=== PATIENT | male | born 1970 | race Caucasian/White ===

== ENCOUNTER 2024-10-18 10:49 | Outpatient (CLI) | payer OTHER, SELFPAY ==
--- NOTE | ~2024-10-18 | CT_ITS ---
CT scan of the Neck Technique: 2.5 mm axial scans were obtained through the neck after intravenous administration of 75 c c Omnipaque 350. Coronal and sagittal reconstructions of the neck were obtained. Dose reduction techn ique was used on this scan by utilizing automated exposure control and iterative reconstruction techn ique. The dose-length product (DLP) was 596.77 mGy-cm. Clinical History: Left parotid gland mass Findings: There is a heterogeneously enhancing mass in the left parotid gland superficial portion, measuring 2. 6 x 2.4 x 4.3 cm in size (coronal image 56). Right parotid gland unremarkable. Submandibular glands a re unremarkable. No lymphadenopathy evident. Parapharyngeal fat preserved bilaterally. The pharyngeal mucosal spaces appear normal. No soft tissue masses are seen in the neck. The thyroid gland appears normal. Images of the lung apices reveal no abnormalities. Impression: 2.6 x 2.4 x 4.3 cm heterogeneous enhancing mass in the superficial portion of the left parotid gland. Benign and malignant neoplasms are in the differential diagnosis. MR imaging can be pursued for furt her imaging evaluation, though oftentimes parotid gland lesions cannot be precisely diagnosed based o n imaging alone. Biopsy will likely be necessary to establish a histologic diagnosis, and should be a chievable by ultrasound-guided biopsy. Reviewed, dictated and finalized at location M. Impression: 2.6 x 2.4 x 4.3 cm heterogeneous enhancing mass in the superficial portion of t he left parotid gland. Benign and malignant neoplasms are in the differential d iagnosis. MR imaging can be pursued for further imaging evaluation, though ofte ntimes parotid gland lesions cannot be precisely diagnosed based on imaging lester ne. Biopsy will likely be necessary to establish a histologic diagnosis, and sh ould be achievable by ultrasound-guided biopsy.
[2024-10-18 11:42] LABS: Estimated Glomerular Filt Rate 53
== END 2024-10-18 10:50 | disposition home or self-care (01) ==
PROVIDERS: PCP Family Medicine; Visit Provider Otolaryngology
DX: K11.8 Other diseases of salivary glands (principal)
CPT/HCPCS: 70491; Q9967

== ENCOUNTER 2024-11-04 12:31 | Outpatient (CLI) | payer OTHER, SELFPAY ==
--- NOTE | ~2024-11-04 | US_ITS ---
EXAMINATION: US FNA w image guidance DATE: 11/04/2024 13:56 INDICATION: Left parotid mass TECHNIQUE: A time-out was performed to verify the patient's name, date of , and procedure to be performed . The procedure and its benefits and risks were discussed with the patient. Risks specifically discus sed included bleeding and infection. The patient understood the risks and agreed to proceed. The neck was prepped and draped in the usual sterile manner. 3 mL 1% lidocaine was used for local anesthesia . 6 passes were made with a 25G needle into the lesion. Appropriate needle location was documented with continuous sonographic guidance. A sterile bandage was applied. There were no immediate compli cations. FINDINGS: Grayscale ultrasound images demonstrate biopsy needles advanced into a 4.1 x 2.5 x 2.4 cm heterogeneo usly hypoechoic mass in the left parotid. IMPRESSION: 1. Successful ultrasound-guided fine needle aspiration of a 4.1 cm left parotid mass. Reviewed, dictated and finalized at location A. IMPRESSION: 1. Successful ultrasound-guided fine needle aspiration of a 4.1 cm left paroti d mass.
--- OUTSIDE RECORDS SUMMARY | 2024-11-04 12:37 | XMS_ITS | Patient Health Record ---
Author Organization [facility] Address [address] [address] Care Team Providers Care Transfer Agent Name Role Phone RODERICK TODD Primary Care Provider Petty luis Joesphxiao Haile Unavailable [phone] Allergies No Known Allergies Results Component Value Reference Range Notes Hemoglobin A1C Reviewed date:02/05/2024 10:20:40 AM Interpretation:6.5 Performing Lab: Notes/Report: 6.5 Hemoglobin A1c 6.5 Hemoglobin A1C Reviewed date:02/05/2024 10:20:40 AM Interpretation:6.5 Performing Lab: Notes/Report: 6.5 Hemoglobin A1c 6.5 MICROALBUMIN, RANDOM URINE ( W/CREATININE) Reviewed date:05/06/2024 02:27:21 PM Interpretation:Normal Performing Lab: Notes/Report: Normal Microalbumin, Urine 39.1 Microalb/Creat Ratio 23.7 Creatinine, Urine 165 Lipid Panel, Fasting Reviewed date:05/06/2024 02:27:28 PM Interpretation:Normal Performing Lab: Notes/Report: Normal DIRECT LDL 64 CHOLESTEROL, TOTAL 115 HDL CHOLESTEROL 48 TRIGLYCERIDES 105 LDL-CHOLESTEROL 46 Hemoglobin A1C Reviewed date:05/06/2024 02:28:26 PM Interpretation:7.9 Performing Lab: Notes/Report: 7.9 Hemoglobin A1c 7.9 Hemoglobin A1C Reviewed date:05/06/2024 02:28:26 PM Interpretation:7.9 Performing Lab: Notes/Report: 7.9 Hemoglobin A1c 7.9 CMP (Comp Metabolic Panel) Reviewed date:05/06/2024 02:28:39 PM Interpretation:eGFR 54 Performing Lab: Notes/Report: eGFR 54 CREATININE 1.45 eGFR NON-AFR. EQUATORIAL GUINEAN 54 SODIUM 133 POTASSIUM 3.9 ALT 30 AST 34 CALCIUM 9.1 GLUCOSE 174 ALKALINE PHOSPHATASE 71 ALBUMIN 4.0 CBC (H/H, RBC, INDICES, WBC, PLT) Reviewed date:05/06/2024 02:28:49 PM Interpretation:Normal Performing Lab: Notes/Report: Normal Hematocrit 54.6 Hemoglobin 18.1 MCH 28.7 MCHC 33.2 MCV 86.5 MPV 9.3 Platelets 393 RBC 6.31 RDW 15.9 WBC 21.5 Reason For Referral No Information Medications Medication SIG (Take, Route, Frequency, Duration) Notes Start Date End Date Status Testosterone Cypionate 200 MG/ML INJECT 1 ML INTRAMUSCULARLY ONCE WEEKLY; Duration: 90 07/03/2024 Active Tamsulosin HCl 0.4 MG Oral; Duration: 90 Days Acti ve Tresiba FlexTouch 200 UNIT/ML 60 units Subcutaneous once a day; Duration: 90 days Active Losartan Potassium-HCTZ 50-12.5 MG 1 tablet Orally Once a day Active Fiasp FlexTouch 100 UNIT/ML 25 units Subcutaneous three times a day; Duration: 90 days E1065 03/06/2024 Active Metoprolol Succinate ER 25 MG 1 tablet Orally Once a day; Duration: [address] Hahn does not manage this medication. Patient needs to contact PCP. 05/30/2024 Active Dexcom G7 Sensor - apply one sensor juana ry 10 days; Duration: 30 days E1065 03/06/2024 Active Viagra 100 MG 1 tablet as needed Orally Once a day; Duration: 30 day(s) Active Atorvastatin Calcium 80 MG 1 tablet Orally Once a day Active FreeStyle Gregory 3 Sensor - as directed by device twice month 12/29/2023 Active Gvoke HypoPen 2-Pack 1 MG/0.2ML inject 1mg Subcutaneous as needed with hypoglycemia 12/18/2023 Active Social History Tobacco Use: Social History Observation Description Date Details (start date - stop date) Current Smoker NA - NA TU Question Answer Notes Are you a smoker current smoker How often do you smoke cigarettes? every day How many cigarettes a day do you smoke? 11- Tobacco Control (Standard) Question Answer Notes Tobacco use: Current smoker Problems Problem Type SNOMED Code ICD Code Onset Dates Problem Status W/U Status Risk Notes Problem Mixed hyperlipidemia (808720621) Mixed hyperlipidemia (E78.2) Active confirmed Problem Essential hypertension (65682546) Essential (primary) hypertension (I10) Active confirmed Problem Obesity due to excess calories (257430911) Other obesity due to excess calories (E66.09) Active confirmed Problem Dietary management surveillance (279801992) Dietary counseling and surveillance (Z71.3) Active confirmed Problem Long-term current use of insulin (112106397) jail (current) use of insulin (Z79.4) Active confirmed Problem Hyperglycemia due to type 1 diabetes mellitus (406557080459678) Diabetes mellitus type 1, uncontrolled (E10.65) Active confirmed Problem Polyneuropathy due to diabetes mellitus type I (790601465) Diabetic polyneuropathy associated with type 1 diabetes mellitus (E10.42) Active confirmed Problem Chronic kidney disease stage 3A (disorder) (579710847) Chronic kidney disease, stage 3a (N18.31) Active confirmed Vital Signs Respiratory Rate 20 /min 02/02/2024 Blood pressure diastolic 84 mm Hg 02/02/2024 Height 72 in 02/02/2024 Blood pressure systolic 142 mm Hg 02/02/2024 Weight 245 lbs 02/02/2024 BMI 33.22 kg/m2 02/02/2024 Encounters Encounter Location Date Provider Diagnosis [address] [address] 12/29/2023 Haile Hahn Diabetes mellitus ty pe 1, uncontrolled E10.65 ; Diabetic polyneuropathy associated with type 1 diabetes mellitus E10.42 ; Essential (primary) hypertension I10 ; Chronic kidney disease, stage 3a N18.31 ; Mixed hyperlipidemia E78.2 ; Other obesity due to excess calories E66.09 ; Dietary counseling and surveillance Z71.3 and jail (current) use of insulin Z79.[address] [address] 02/02/2024 Haile Hahn Diabetes mellitus ty pe 1, uncontrolled E10.65 ; Diabetic polyneuropathy associated with type 1 diabetes mellitus E10.42 ; Essential (primary) hypertension I10 ; Chronic kidney disease, stage 3a N18.31 ; Mixed hyperlipidemia E78.2 ; Other obesity due to excess calories E66.09 ; Dietary counseling and surveillance Z71.3 and jail (current) use of insulin Z79.[address] [address] 11/10/2023 Haile Hahn Diabetic polyneuropa thy associated with type 1 diabetes mellitus E10.42 [facility] [address] [place] [address] 11/13/2023 Haile Raju Diabetes mellitus ty pe 1, uncontrolled E10.65 [facility] [address] [place] [address] 11/14/2023 [facility] [address] [place] [address] 12/13/2023 Haile Raju Diabetes mellitus ty pe 1, uncontrolled E10.65 [facility] [address] [place] [address] 12/15/2023 [facility] Diabetes mellitus ty pe 1, uncontrolled E10.65 [place] [address] [place] [address] 12/21/2023 [facility] [address] [place] [address] 02/13/2024 [place] [address] [place] [address] 03/06/2024 [facility] Raju Diabetes mellitus ty pe 1, uncontrolled E10.[address] [address] 05/30/2024 [facility] [address] [facility] [address] [place] [address] 06/13/2024 [place] [address] [place] [address] 08/12/2024 [facility] [address] [place] [address] 09/19/2024 [facility] Raj Diabetes mellitus ty pe 1, uncontrolled E10.65 Assessments Encounter Date Diagnosis (ICD Code) Assessment Notes Treatment Notes Treatment Clinical Notes Section Notes 11/10/2023 Diabetic polyneuropathy associated with type 1 diabetes mellitus (ICD-10 - E10.42) 11/13/2023 Diabetes mellitus type 1, uncontrolled (ICD-10 - E10.65) 12/13/2023 Diabetes mellitus type 1, uncontrolled (ICD-10 - E10.65) 12/15/2023 Diabetes mellitus type 1, uncontrolled (ICD-10 - E10.65) 12/29/2023 Diabetes mellitus type 1, uncontrolled (ICD-10 - E10.65) Takes insulin 4 times a day and test blood sugars 4 times a day. Assessment: A1c in 7-8s, LDL 41 Patient seen Says his BS high and low for no reason sometimes and was about to enroll him in a study Had bad experience with sensors in the past. Says it was not accurate and failure rate was high Plan: Advised to get Dexcom G6 and see if he can wear it and if accuracy is good. He is open to get a insulin pump. Need to know if he tolerates Dexcom G6 or G7 or gregory before deciding on the pump. Will evaluate in AprDec 2023:Not enough data in LibreFiasp [address] a day (1 unit for every 10 gm of carbs)Tresiba 30 units 02/02/2024 Diabetes mellitus type 1, uncontrolled (ICD-10 - E10.65) Takes insulin 4 times a day and test blood sugars 4 times a day. Assessment: A1c in 7-8s, LDL 41 Patient seen Says his BS high and low for no reason sometimes and was about to enroll him in a study Had bad experience with sensors in the past. Says it was not accurate and failure rate was high Plan: Advised to get Dexcom G6 and see if he can wear it and if accuracy is good. He is open to get a insulin pump. Need to know if he tolerates Dexcom G6 or G7 or gregory before deciding on the pump. Will evaluate in AprJan 2024Fiasp [address] a day (1 unit for every 10 gm of carbs)Tresiba 30 units Gregory reviewed, PP hyperglycemia 03/06/2024 Diabetes mellitus type 1, uncontrolled (ICD-10 - E10.65) 09/19/2024 Diabetes mellitus type 1, uncontrolled (ICD-10 - E10.65) 02/02/2024 Diabetic polyneuropathy associated with type 1 diabetes mellitus (ICD-10 - E10.42) 12/29/2023 Diabetic polyneuropathy associated with type 1 diabetes mellitus (ICD-10 - E10.42) 12/29/2023 Essential (primary) hypertension (ICD-10 - I10) controlled. 2 g sodium diet. Blood pressure goal less than 130/80. 02/02/2024 Essential (primary) hypertension (ICD-10 - I10) controlled. 2 g sodium diet. Blood pressure goal less than 130/80. 02/02/2024 Chronic kidney disease, stage 3a (ICD-10 - N18.31) eGFR 44 12/29/2023 Chronic kidney disease, stage 3a (ICD-10 - N18.31) eGFR 44 12/29/2023 Mixed hyperlipidemia (ICD-10 - E78.2) COntrolled. LDL goal < 100. 02/02/2024 Mixed hyperlipidemia (ICD-10 - E78.2) COntrolled. LDL goal < 100. 12/29/2023 Other obesity due to excess calories (ICD-10 - E66.09) Patient was advised to take to take 500-1000 fewer calories every day to lose 1 pound per week. [Advised to lose five to 10% of her current weight to achieve health benefits]., 02/02/2024 Other obesity due to excess calories (ICD-10 - E66.09) Patient was advised to take to take 500-1000 fewer calories every day to lose 1 pound per week. 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
--- OUTSIDE RECORDS SUMMARY | 2024-11-04 12:37 | XMS_ITS | Clinical Summary ---
Author Organization [facility] 2 Address [address] [facility] [place] [address] Care Team Providers Care Quality Assurance Monitor Name Role Phone Kavitajagdeep Deniz Lam CHRISTOPHER Primary Care Provider Allergies No known active allergies Medications pen needle, diabetic (BD ULTRA-FINE KORINA PEN NEEDLE) 32 gauge x 5/32 needle use 4 times daily 12/18/19 15 Active lancets (freestyle) 28 gauge misc Check 4 times daily 12/18/19 15 Active lancets (ONETOUCH DELICA LANCETS) 30 gauge misc use 4 times daily 12/18/19 15 Active blood-glucose sensor (DEXCOM G6 SENSOR) deviceIndication s:Type 1 diabetes mellitus with complication (HCC) Change every 7-10 days as directed 12 Device 3 03/21/20 18 Active Additional Information Patient not taking.Reported on 06/12/2019 glucagon (glucagon) 1 mg kit As directed 1 kit 11 11/01/19 19 Active glucagon 3 mg/actuation spray,non-aeroso lIndications:Typ e 1 diabetes mellitus with complication (HCC) Administer 3 mg into affected nostril(s) daily as needed (as directed for severe lows) 1 each 11 06/12/19 20 Active Tresiba FlexTouch U-100 100 unit/mL (3 mL) insulin penIndications:T ype 1 diabetes mellitus with complication (HCC) INEJCT 24 SUBCUTANEOUSLY ONCE DAILY 30 Syringe 04/27/19 21 Active FIASP 100 unit/mL (3 mL) pen for injection INJECT 1 UNIT/10 GM OF CARBS AND 1 UNIT/25 OVER 150 - MAX 60 UNITS/DAY 60 Syringe 3 10/08/19 Active famotidine (PEPCID) 40 mg tablet TAKE 1 TABLET BY MOUTH EVERY DAY 90 tablet 03/22/20 Active Dexcom G6 Transmitter deviceIndication s:Type 1 diabetes mellitus with complication (HCC) CHANGED EVERY 3 MONTHS DIRECTED 1 each 03/22/20 Active FreeStyle Lite Strips stripIndications :Type 1 diabetes mellitus with complication (HCC) USE TO TEST THREE TIMES DAILY 100 strip 1 03/22/20 Active Active Problems Problem Noted Date Diagnosed Date Gastroesophageal reflux disease with esophagitis 06/12/2019 Type 1 diabetes mellitus 12/17/2014 Multiple-type hyperlipidemia 12/17/2014 Hypogonadism in male 12/17/2014 Family History Medical History Relation Name Comments Cancer Cousin Cancer - (Added by Scirra) Hypertension Father Hypertension - (Added by Liztic Conv) Cancer Maternal Grandfather Cancer - Relation: Grandfather (Added by Liztic Conv) Thyroid disease Mother Thyroid Diso rder - (Added by Liztic Conv) Cancer Other 1 Cancer - Relati on: Grandmother (Added by Liztic Conv) Cancer Other 2 Cancer - Relati on: Aunt (Added by Liztic Conv) Cancer Other 3 Cancer - Relati on: Uncle (Added by Liztic Conv) Relation Name Status Comments Cousin Father Maternal Grandfather Mother Other 1 Other 2 Other 3 Social History Tobacco Use Types Packs/Day Years Used Date Smoking Tobacco: Some Days Personal Safety Answer Date Recorded Getting School Help Needed Not on file 07/07 Sex and Gender Information Value Date Recorded Sex Assigned at Not on file Legal Sex Male 8: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 Gender Identity Not on file Sexual Orientation Not on file Obstetrics History Last Filed Vital Signs Vital Sign Reading Time Taken Comments Blood Pressure 147/87 06/12/2019 11:04 AM AIRCRAFT SEAT UPHOLSTERER Pulse 67 06/12/2019 11:04 AM AIRCRAFT SEAT UPHOLSTERER Temperature 37 C (98.6 F) 06/12/2019 11:04 AM AIRCRAFT SEAT UPHOLSTERER Respiratory Rate - - Oxygen Saturation - - Inhaled Oxygen Concentration - - Weight 104.3 kg (230 lb) 06/12/2019 11:04 AM AIRCRAFT SEAT UPHOLSTERER Height 180.3 cm (5' 11) 06/12/2019 11:04 AM AIRCRAFT SEAT UPHOLSTERER Body Mass Index 32.08 06/12/2019 11:04 AM AIRCRAFT SEAT UPHOLSTERER Plan of Treatment Not on file Insurance Care Teams Quality Assurance Monitor Relationship Specialty Start Date End Date Deniz Anguiano DO PCP - General 03/27/17
--- OUTSIDE RECORDS SUMMARY | 2024-11-04 12:37 | XMS_ITS | Referral Summary ---
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 Gender Identity Not on file Sexual Orientation Not on file Last Filed Vital Signs Vital Sign Reading Time Taken Comments Blood Pressure 147/87 06/12/2019 11:04 AM INCIDENT RESPONSE COORDINATOR Pulse 67 06/12/2019 11:04 AM INCIDENT RESPONSE COORDINATOR Temperature 37 C (98.6 F) 06/12/2019 11:04 AM INCIDENT RESPONSE COORDINATOR Respiratory Rate - - Oxygen Saturation - - Inhaled Oxygen Concentration - - Weight 104.3 kg (230 lb) 06/12/2019 11:04 AM INCIDENT RESPONSE COORDINATOR Height 180.3 cm (5' 11) 06/12/2019 11:04 AM INCIDENT RESPONSE COORDINATOR Body Mass Index 32.08 06/12/2019 11:04 AM INCIDENT RESPONSE COORDINATOR Plan of Treatment Not on file Insurance [facility] [employer] [facility] Care Teams Cable Dispatcher Relationship Specialty Start Date End Date Deniz Anguiano DO PCP - General 03/27/17
--- OUTSIDE RECORDS SUMMARY | 2024-11-04 12:38 | XMS_ITS | Patient Health Record ---
Author Organization Main ([facility]) - Primar y Care [place] Address [address] [facility] [address] [place] [address] Support Name Relationship Address Phone Unavailable Emergency Contact Unknown Unavailabl e TOAN BARRERA Guarantor Unknown [phone] Reason For Referral No Information Medications Medication SIG (Take, Route, Frequency, Duration) Notes Start Date End Date Status BD ULTRA FINE II 0.3 ML SYRN 31GX5/16 MISCELLANEOUS 1.00(MISCELL) MISCELL. DIRECTE *please review for potential update for e-prescription and drug interaction check* use as directed 11/01/2005 Active LANTUS 100 UNITS/ML VIAL 100 U/ML UNITS 25.00(UNITS) SUB-Q QD *please review for potential update for e-prescription and drug interaction check* 11/01/2005 Active Plan Of Treatment No Information Insurance Providers Payer Name Payer Address Payer Phone Subscriber Number Group Number Insured Name Patient Relationship to Insured Coverage Start Date Coverage End Date Migrated Missing Insurance [id number] TAON BARRERA Self - patient is the insured 7
--- OUTSIDE RECORDS SUMMARY | 2024-11-04 12:38 | XMS_ITS ---
Author Organization [facility] Address [address] [address] Care Team Providers Care Ocean Lifeguard Name Role Phone TODD VAUGHN Primary Care Provider Haile Alston Unavailable [phone] REASON FOR VISIT Christen Velásquez, Diabetes Medications Medication SIG (Take, Route, Frequency, Duration) Notes Start Date End Date Status Gvoke HypoPen 2-Pack 1 MG/0.2ML inject 1mg Subcutaneous as needed with hypoglycemia 12/18/2023 Active Tresiba FlexTouch 200 UNIT/ML 60 units Subcutaneous once a day Active Losartan Potassium-HCTZ 50-12.5 MG 1 tablet Orally Once a day A ctive Dexcom G7 Sensor - apply one sensor juana ry 10 days; Duration: 30 days E10.65 03/06/2024 Active Fiasp FlexTouch 100 UNIT/ML 25 units Subcutaneous three times a day; Duration: 90 days E1065 03/06/2024 Active Viagra 100 MG 1 tablet as needed O rally Once a day; Duration: 30 day(s) Active Testosterone Cypionate 200 MG/ML 1 mL Intramuscular weekly; Duration: 90 days 10/30/2023 Active Atorvastatin Calcium 80 MG 1 tablet Orally Once a day A ctive FreeStyle Gregory 3 Sensor - as directed by device twice month 12/29/2023 Active Tamsulosin HCl 0.4 MG Oral; Duration: 90 Days Active Encounters Encounter Location Date Provider Diagnosis [facility] [address] [place] [address] 04/05/2024 Haile Hahn Diabetes mellitus ty pe 1, uncontrolled E10.65 ; Diabetic polyneuropathy associated with type 1 diabetes mellitus E10.42 ; Essential (primary) hypertension I10 ; Chronic kidney disease, stage 3a N18.31 ; Mixed hyperlipidemia E78.2 ; Other obesity due to excess calories E66.09 ; Dietary counseling and surveillance Z71.3 and 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 2 g sodium diet. Blood pressure goal less than 130/80. 04/05/2024 Chronic kidney disease, stage 3a (ICD-10 - N18.31) eGFR 44 04/05/2024 Mixed hyperlipidemia (ICD-10 - E78.2) COntrolled. LDL goal < 100. 04/05/2024 Other obesity due to excess calories (ICD-10 - E66.09) Patient was advised to take to take 500-1000 fewer calories every day to lose 1 pound per week. [Advised to lose five to 10% of her current weight to achieve health benefits]., 04/05/2024 Dietary counseling and surveillance (ICD-10 - Z71.3) 04/05/2024 shelter (current) use of insulin (ICD-10 - Z79.4) Plan Of Treatment Treatment Notes Assessment Notes Diabetes mellitus type 1, uncontrolled T akes insulin 4 times a day and test blood sugars 4 times a day. Progress Notes * Barbie BARRERA:1970 (53 yo M)Acc No.[id number]:04/05/2024 Patient: Paulie MOTA Provider: Alexander Hahn MD :1970 A ge:53 Y S ex:Male Date:04/05/2024 Address:[address] [place] [address] Pcp:TODD VAUGHN Subjective: * Chief Complaints: * 1 . Freestyle. 2. Freestyle. 3. Diabetes. Objective: * Vitals: Assessment: * Assessment: 1. D iabetes mellitus type 1, uncontrolled - E10.65 (Primary) 2 . D iabetic polyneuropathy associated with type 1 diabetes mellitus - E10.42 3 . E ssential (primary) hypertension - I10 4 . C hronic kidney disease, stage 3a - N18.31 5. M ixed hyperlipidemia - E78.2 6 . O ther obesity due to excess calories - E66.09 7 . D ietary counseling and surveillance - Z71.3 ? 8 . L connie term (current) use of insulin - Z79.4 Plan: * Treatment: 2. E ssential (primary) hypertension Clinical Notes: controlled. 2 g sodium diet. Blood pressure goal less than 130/80. 3. C hronic kidney disease, stage 3a Clinical Notes: eGFR 44 4. M ixed hyperlipidemia Clinical Notes:COntrolled. LDL goal < 100. 5. O ther obesity due to excess calories Clinical Notes: Patient was advised to take to take 500-1000 fewer calories every day to lose 1 pound per week. [Advised to lose five to 10% of her current weight to achieve health benefits]., ? * Billing Information: * Visit Code: * Procedure Codes: * Electronic signature of Radha Hahn MD on 11/04/2024 at 12:37 PM CDT Sign off status: Pending * Provider: Alexander Hahn MD Date: 06/06/2023 Generated for Junior ng/Faevangelinag/eTransmitting on: 0 11/04/2024 12:37 PM CDT History and Physical Notes * HPI (History of Present Illness) Category Sub-Category Detail Notes Category Not es Diabetes Diabetes Duration: 20-30 yrs Diagnosed age 25 Current Treatment: Insulin Jan 2024: Fiasp [address] a day (1 unit for every 10 gm of carbs) Tresiba 30 units Sensor: Freestyle SMB-4 times Eating Schedule: 3 meal Diabetic Complication: Nephropathy Hospital admission for Hyper glycemia and DKA: No Exercise: No Hypoglycemia: Yes When ptit it happen?: Night Time Can you feel the low BS?: Yes Hypoglycemia unawareness?: No Work Schedule: Retired Diabetes ID Bracelet: No Do you check BS before Driving: No Autonomic Neuropathy abdominal fullness nausea vomiting urinary problems sexual difficulty night sweats cold feet leg swelling dizziness Registry FLU Vaccine Status: Declined Pneumonia Vaccine Status: Declined Smoking Status: Current Date Assessed: 03/31/2023 Cessation Counselling Provided: 03/31/20 Depression Screening PHQ-2 Little interest or pleasur e in doing things?: No Feeling Down, Depressed or Hopeless?: No Social Assessments Health Literacy Low Health Literacy: No Cognitive Assessment Cognitive Dysfunction: No Functional Assessment Visual Impairment: No Hearing Impairment: No Mobility/Dexerity Issues: No Swallowing Problems: No Frequent Falls: No Functional Status: 1 Losing Balance: No Dependence for ADL: No Risk for Fall: No Social Support Assessment Isolation: No Transportation difficulties: No Lack of motivation: No Caregiver Stress: No Financial Difficulties: No Major Events self/family Members interfe ring with self-Care: No Difficulty with care corodination and fa cilitation: No Nonadherence: No Inadequate Medical Visits: No Inadequate Monitoring: No Not integrating recommendations from Pro viders: No Health Beliefs interfering with therapy: No Living Condition Lives with: Spouse Lives in: Home Functional Barriers at the living place: No Caregiver: Self Examination Category Sub-Category Detail Notes Category Not es General Examination HEENT: Normocephalic, atraum atic Neck, Thyroid : Supple, no thyromega ly, no lymphadenopathy, no JVD, no carotid bruit Heart: RRR, normal S1S2, no murmur, rub, or gallop Lungs: Clear to auscultatio n bilaterally, no wheezes, rhonchi, or rales Abdomen: Soft, NT/ND, BS pres ent, no guarding or rebound, no masses palpated, no hepatosplenomegaly Extremities: No clubbing, cyanosi s, or edema, pulses 2+ bilaterally General Appearance: Well developed and w ell- nourished, NAD Skin: No rash or skin lesi ons Neurologic Exam: Non-focal exam, CN's II-XII grossly intact Oral Cavity Normal, moist mucus membranes Diabetic Foot Exam Visual Inspection: Exam Perfo rmed : Yes Date:: 12/29/2023 Nails: Normal Skin: Normal Pulses: Normal Vibration: Reduced Monofilament: Normal Footwear Evaluation Performed: Yes Images: 12/29/2023 Opthamology Referral Specialty of provid er who performed eye exam: 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
--- OUTSIDE RECORDS SUMMARY | 2024-11-04 12:38 | XMS_ITS ---
Author Organization [facility] Address [address] [address] Care Team Providers Care Manual Winder Name Role Phone TODD VAUGHN Primary Care Provider Haile Altson Unavailable [phone] REASON FOR VISIT Freestyle, Diabetes Medications Medication SIG (Take, Route, Frequency, Duration) Notes Start Date End Date Status Losartan Potassium-HCTZ 50-12.5 MG 1 tablet Orally Once a day Active Tresiba FlexTouch 200 UNIT/ML 60 units Subcutaneous once a day Active Fiasp FlexTouch 100 UNIT/ML 25 units Subcutaneous three times a day; Duration: 90 days E10.65 03/06/2024 Active FreeStyle Gregory 3 Sensor - as directed by device twice month 12/29/2023 Active Gvoke HypoPen 2-Pack 1 MG/0.2ML inject 1mg Subcutaneous as needed with hypoglycemia 12/18/2023 Active Tamsulosin HCl 0.4 MG Oral; Duration: 90 Days Active Testosterone Cypionate 200 MG/ML 1 mL Intramuscular weekly; Duration: 90 days 10/30/2023 Active Metoprolol Succinate ER 25 MG 1 tablet Orally Once a day; Duration: [address] Hahn does not manage this medication. Patient needs to contact PCP. 05/30/2024 Active Viagra 100 MG 1 tablet as needed Orally Once a day; Duration: 30 day(s) Active Atorvastatin Calcium 80 MG 1 tablet Orally Once a day Active Dexcom G7 Sensor - apply one sensor juana ry 10 days; Duration: 30 days E10.65 03/06/2024 Active Encounters Encounter Location Date Provider Diagnosis [facility] [address] [place] [address] 06/07/2024 Haile Hahn Diabetes mellitus ty pe 1, uncontrolled E10.65 ; Diabetic polyneuropathy associated with type 1 diabetes mellitus E10.42 ; Essential (primary) hypertension I10 ; Chronic kidney disease, stage 3a N18.31 ; Mixed hyperlipidemia E78.2 ; Other obesity due to excess calories E66.09 ; Dietary counseling and surveillance Z71.3 and alf (current) use of insulin Z79.4 Assessments Encounter Date Diagnosis (ICD Code) Assessment Notes Treatment Notes Treatment Clinical Notes Section Notes 06/07/2024 Diabetes mellitus type 1, uncontrolled (ICD-10 - [...] carbs)Tresiba 30 units Gregory reviewed, PP hyperglycemia 06/07/2024 Diabetic polyneuropathy associated with type 1 diabetes mellitus (ICD-10 - E10.42) 06/07/2024 Essential (primary) hypertension (ICD-10 - I10) controlled. 2 g sodium diet. Blood pressure goal less than 130/80. 06/07/2024 Chronic kidney disease, stage 3a (ICD-10 - N18.31) eGFR 44 06/07/2024 Mixed hyperlipidemia (ICD-10 - E78.2) COntrolled. LDL goal < 100. 06/07/2024 Other obesity due to excess calories (ICD-10 - E66.09) Patient was advised to take to take 500-1000 fewer calories every day to lose 1 pound per week. 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 Progress Notes * Paulie BARRERADOB:1970 (53 yo M)Acc No.[id number]:06/07/2024 Patient: Paulie MOTA Provider: Alexander Hahn MD :1970 A ge:53 Y S ex:Male Date:06/07/2024 Address:[address] [place], [place] [id number] Pcp:TODD VAUGHN Subjective: * Chief Complaints: * 1 . Freestyle. 2. Diabetes. Objective: * Vitals: Assessment: * Assessment: [...] of Radha Hahn MD on 11/04/2024 at 12:38 PM CDT Sign off status: Pending * Provider: Alexander Hahn MD Date: 0 06/07/2024 Generated for Junior metzger/Christina/Jose Gitting on: 0 11/04/2024 12:38 PM CDT History and Physical Notes * [...] DKA: No Exercise: No Hypoglycemia: Yes When pitt it happen?: Night Time Can you feel [...] Date Assessed: 03/31/2023 Cessation Counselling Provided: 03/31/20 23 Depression Screening PHQ-2 Little interest or pleasur [...] Yes Images: 12/29/2023 Opthamology Referral Specialty of [facility] er who 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
--- OUTSIDE RECORDS SUMMARY | 2024-11-04 12:38 | XMS_ITS ---
Author Organization [facility] Address [address] [address] Care Team Providers Care School Cleaner Name Role Phone TODD VAUGHN Primary Care Provider Haile Alston Unavailable [phone] REASON FOR VISIT Freestyle Encounters Encounter Location Date Provider Diagnosis [facility] [address] [place] [address] 06/14/2024 Haile Hahn Plan Of Treatment No Information Progress Notes * BARRERAPaulie JEFFERSDOB:1970 (53 yo M)Acc No.[id number]:06/14/2024 Patient: Paulie MOTA Provider: Alexander Hahn MD :1970 A ge:53 Y S ex:Male Date:06/14/2024 Address:[address] [place], [place] [id number] Pcp:TODD VAUGHN Subjective: * Chief Complaints: * 1 . Freestyle. Objective: * Vitals: Assessment: Plan: * Treatment: * Billing Information: * Visit Code: * Procedure Codes: * Electronic signature of Radha Hahn MD on 11/04/2024 at 12:38 PM CDT Sign off status: Pending * Provider: Alexander Hahn MD Date: 06/14/2024 Generated for Junior metzger/Christina/eTransmitting on: 11/04/2024 12:38 PM CDT
--- NOTE | 2024-11-04 13:53 | CY_PTH ---
PATIENT: Paulie Neal LOC: [facility] U#:[id number] AGE/SX: 53/M ROOM: RE11/04/[address]: Prashant BarbozaMD : 1970 BED: DIS: 11/04/2024 SPEC #: [id number] RECD: 11/04/24 14:09 STATUS: CRIS REQ #: [id number] LUPILLO: 11/04/24 13:[address]: JabariPrashant DEPT: [facility] Cytology RECD BY: Kierra Lopez ENTERED: 11/04/24 14:09 SP TYPE: Cytology OTHR DR: Raj PeaceMD Tissues: A - FNA Non Thyroid Procedures: Hematoxylin and Eosin Stain Cell Block Cytopathology Cytospin
== END 2024-11-04 12:32 | disposition home or self-care (01) ==
PROVIDERS: PCP Family Medicine; Visit Provider Otolaryngology
DX: K11.8 Other diseases of salivary glands (principal)
CPT/HCPCS: 10005; 88108; 88305